=== PATIENT | female | born 1990 | race Caucasian/White ===

== ENCOUNTER 2017-12-28 18:04 | Emergency (ER) | payer OTHER ==
[~2017-12-28] VITALS: Ht 172.7 cm; Wt 56.2 kg
[2017-12-28 18:58] VITALS: Ht 172.7 cm; Wt 56.2 kg
[2017-12-28 20:18] VITALS: BP 106/64
== END 2017-12-28 20:18 | disposition home or self-care (01) ==
LOC: ED 18:04
DX: S13.9XXA Sprain of joints and ligaments of unspecified parts of neck, initial encounter (principal); S93.402A Sprain of unspecified ligament of left ankle, initial encounter; M54.9 Dorsalgia, unspecified; V49.88XA Car occupant (driver) (passenger) injured in other specified transport accidents, initial encounter; Y93.I9 Activity, other involving external motion; Y92.413 State road as the place of occurrence of the external cause; Y99.8 Other external cause status